=== PATIENT | male | born 1960 | race Caucasian/White ===

== ENCOUNTER 2023-02-26 02:11 | Emergency (ER) | payer SELFPAY ==
[~2023-02-26] VITALS: Ht 177.8 cm; Wt 77.3 kg
[2023-02-26 02:12] VITALS: TEMP 97.8
[2023-02-26] MEDS ORDERED: XARE15TA PO (07:44)
[2023-02-26] MEDS ORDERED: XARE20TA PO (07:44)
[2023-02-26 07:45] VITALS: BP 127/74; O2SAT 98
== END 2023-02-26 08:14 | disposition home or self-care (01) ==
LOC: M ED 02:11
DX: I82.402 Acute embolism and thrombosis of unspecified deep veins of left lower extremity (principal); Z79.899 Other long term (current) drug therapy